=== PATIENT | female | born 1935 | race African-American/Black ===

== ENCOUNTER 2018-04-19 08:56 | Inpatient (IN) | payer BC, MEDICARE ==
[2018-04-19] VITALS (17 sets, daily range): BP systolic 108–160; BP diastolic 37–154
[~2018-04-19] VITALS: Ht 162.6 cm; Wt 90.7 kg
[2018-04-19] MEDS ORDERED: SODIUM CHLORIDE 0.9% 1,000 ML IV ONE ×2 (09:11→10:41)
[2018-04-19 10:00] LABS: HEMOGLOBIN. 10.2 g/dL (12.0-16.0); MEAN CORPUSCULAR HEMOGLOBIN 33.5 pg (28.0-32.0); MEAN CORPUSCULAR VOLUME 108.3 fL (81.0-99.0); MEAN PLATELET VOLUME 10.7 fl (7.4-10.4); RED BLOOD CELL COUNT 3.05 mill/uL (4.2-5.4); RED CELL DISTRIBUTION WIDTH 16.8 % (11.6-14.6)
[2018-04-19 10:05] LABS: CHLORIDE 82 mEq/L (98-107)
[2018-04-19 10:25] LABS: PLATELET ESTIMATE NORMAL
[2018-04-19 10:26] LABS: PLATELET 308 x1000/uL (130-400)
[2018-04-19 10:35] LABS: BETA HYDROXYBUTYRATE 6.5 mMol/L (0.0-0.3)
[2018-04-19] MEDS ORDERED: ONDANSETRON HCL 4MG/2ML INJ IV STA (10:41)
[2018-04-19 10:46] LABS: BG BASE EXCESS -10.8 mmol/L (-2.0-2.0); BG CARBOXYHEMOGLOBIN 0.5 % (0.5-1.5); BG DEOXYHEMOGLOBIN 3.2 % (0.0-5.0); BG FRACTION INSPIRED OXYGEN 28; BG HCO3 ACT 13.1 mmol/L (22.0-26.0); BG METHEMOGLOBIN 0.3 % (0.0-1.5); BG OXYGEN SATURATION 96.8 % (92.0-98.5); BG PCO2 23.3 mmHg (35.0-45.0); BG PH 7.367 (7.350-7.450); BG PO2 103.4 mmHg (75.0-100.0); BG SAMPLE SITE RIGHT BRACHIAL; BG TOTAL HEMOGLOBIN 9.2 g/dL (12.0-18.0); BG VENT MODE NASAL CANNULA
[2018-04-19 11:04] LABS: CLARITY URINE CLOUDY (CLEAR); COLOR URINE DARK YELLOW (YELLOW); KETONES URINE 1+ (NEGATIVE); LEUKOCYTE ESTERASE URINE NEGATIVE (NEGATIVE); NITRITE URINE NEGATIVE (NEGATIVE); OCCULT BLOOD URINE NEGATIVE (NEGATIVE); PROTEIN URINE TRACE (NEGATIVE); SPECIFIC GRAVITY URINE 1.029 (1.005-1.030); UROBILINOGEN URINE 0.2 E.U./dL (0.2-1.0)
[2018-04-19] MEDS ORDERED: POTASSIUM CHLORIDE INJ 40 MEQ in DEXT 5% WATER 250 ML IV ONE ×2 (11:30→14:45)
[2018-04-19] MEDS ORDERED: CEFTRIAXONE 2 G PREMIX 50 ML IV SCH (13:00)
[2018-04-19] MEDS ORDERED: PIPERACILLIN/TAZOBACTAM 3.375GM/50ML PREMIX IV ONE (14:30)
[2018-04-19] MEDS ORDERED: INSULIN REGULAR (DRIP) 100 UNITS in SODIUM CHLORIDE 0.9% 100 ML IV ONE (14:42)
[2018-04-19] MEDS ORDERED: SODIUM CHLORIDE 0.9% 1,000 ML IV NR (14:42)
[2018-04-19] MEDS ORDERED: ACETAMINOPHEN 325MG TABLET PO PRN (14:45)
[2018-04-19] MEDS ORDERED: INSULIN REGULAR (DRIP) 100 UNITS in SODIUM CHLORIDE 0.9% 100 ML IV SCH (15:00)
[2018-04-19 15:42] LABS: HEPATITIS B SURFACE ANTIGEN NEGATIVE
[2018-04-19] MEDS ORDERED: PIPERACILLIN/TAZ 3.375G PREMIX 50 ML IV NR (16:00)
[2018-04-19 16:10] LABS: HEPATITIS B CORE AB IGM NEGATIVE
[2018-04-19 16:12] LABS: HEPATITIS A AB IGM NEGATIVE (NEGATIVE)
[2018-04-19] MEDS ORDERED: POTASSIUM CHLORIDE INJ 40 MEQ in DEXT 5% WATER 250 ML IV NR (16:15)
[2018-04-19] MEDS ORDERED: SODIUM CHLORIDE 0.9% 1,000 ML IV SCH (17:30)
[2018-04-19] MEDS ORDERED: DEXTROSE 50% WATER 50ML SYRINGE IV PRN ×2 (17:30)
[2018-04-19] MEDS: BLOOD SUGAR DIAGNOSTIC STRIP TEST SCH ×7 (17:49→23:59)
[2018-04-19 20:29] LABS: PHOSPHORUS 2.4 mg/dL (2.5-4.9)
[2018-04-19] MEDS: PIPERACILLIN/TAZ 3.375G PREMIX 50 ML IV SCH (20:30)
[2018-04-19] MEDS: INSULIN REGULAR (DRIP) 100 UNITS in SODIUM CHLORIDE 0.9% 100 ML IV SCH (20:31)
[2018-04-19] MEDS ORDERED: KCL 10MEQ/50ML PREMIX 50 ML IV NR (21:00)
[2018-04-20] VITALS (49 sets, daily range): BP systolic 36–176; BP diastolic 21–132
[2018-04-20] MEDS: INSULIN REGULAR (DRIP) 100 UNITS in SODIUM CHLORIDE 0.9% 100 ML IV SCH (00:33)
[2018-04-20] MEDS: BLOOD SUGAR DIAGNOSTIC STRIP TEST SCH ×14 (01:22→21:43)
[2018-04-20] MEDS: PIPERACILLIN/TAZ 3.375G PREMIX 50 ML IV SCH ×3 (04:30→21:41)
[2018-04-20 05:03] LABS: HEMATOCRIT. 28.7 % (36.0-48.0); HEMOGLOBIN. 9.6 g/dL (12.0-16.0); MEAN CORPUSCULAR HEMOGLOBIN 33.9 pg (28.0-32.0); MEAN CORPUSCULAR VOLUME 101.9 fL (81.0-99.0); MEAN PLATELET VOLUME 10.4 fl (7.4-10.4); PLATELET 223 x1000/uL (130-400); RED BLOOD CELL COUNT 2.82 mill/uL (4.2-5.4); RED CELL DISTRIBUTION WIDTH 16.3 % (11.6-14.6)
[2018-04-20 05:11] LABS: CHLORIDE 95 mEq/L (98-107)
[2018-04-20 05:17] LABS: PHOSPHORUS 1.1 mg/dL (2.5-4.9)
[2018-04-20] MEDS ORDERED: DIATR MEGLU/DIATRIZOATE SOLN 30ML PO SCH (07:00)
[2018-04-20] MEDS: DEXT 5%/0.45% NACL 1000ML 1,000 ML IV SCH (07:12)
[2018-04-20 07:48] LABS: NUCLEATED RED BLOOD CELLS 1 /100 WBC
[2018-04-20 07:49] LABS: PLATELET ESTIMATE NORMAL
[2018-04-20] MEDS ORDERED: POTASSIUM PHOS,M-BASIC-D-BASIC 20 MMOL in DEXT 5% WATER 243.3333 ML IV NR (08:00)
[2018-04-20] MEDS ORDERED: MAGNESIUM 2 G PREMIX 50 ML IV NR (08:00)
[2018-04-20] MEDS ORDERED: LIDOCAINE HCL/PF 1% 10 MG/ML 30ML VIAL ONE (10:46)
[2018-04-20] MEDS ORDERED: POTASSIUM CHLORIDE INJ 60 MEQ in DEXT 5% WATER 500 ML IV NR (12:00)
[2018-04-20] MEDS ORDERED: DEXTROSE 50% WATER 50ML SYRINGE IV PRN (14:30)
[2018-04-20] MEDS: INSULIN GLARGINE UD 100 UNITS/ML SYR SUBCUT SCH (16:09)
[2018-04-20] MEDS: INSULIN LISPRO 100 UNITS/ML SUBCUT SCH ×2 (18:27→21:43)
[2018-04-20] MEDS ORDERED: ATEN-42 MT (21:09)
[2018-04-20] MEDS ORDERED: OXYB5TAB MT (21:09)
[2018-04-20] MEDS ORDERED: FELO10TA MT (21:09)
[2018-04-20] MEDS ORDERED: TAP5 MT (21:09)
[2018-04-20] MEDS ORDERED: HYDR12.54 MT (21:09)
[2018-04-20] MEDS ORDERED: LISI-604 MT (21:09)
[2018-04-20] MEDS ORDERED: SIMV20TA6 MT (21:09)
[2018-04-20] MEDS ORDERED: CYCL10TA7 MT (21:09)
[2018-04-21] VITALS (67 sets, daily range): BP systolic 73–154; BP diastolic 31–74
[2018-04-21] MEDS ORDERED: DEXT 5% WATER + KCL 20MEQ/L 1,000 ML IV ONE (00:15)
[2018-04-21] MEDS ORDERED: KCL 20MEQ/100ML PREMIX 100 ML IV SCH (01:00)
[2018-04-21 05:25] LABS: HEMATOCRIT. 28.4 % (36.0-48.0); HEMOGLOBIN. 9.4 g/dL (12.0-16.0); MEAN CORPUSCULAR HEMOGLOBIN 33.9 pg (28.0-32.0); MEAN PLATELET VOLUME 11.2 fl (7.4-10.4); PLATELET 134 x1000/uL (130-400); RED BLOOD CELL COUNT 2.78 mill/uL (4.2-5.4); RED CELL DISTRIBUTION WIDTH 16.3 % (11.6-14.6)
[2018-04-21 05:55] LABS: PHOSPHORUS 2.2 mg/dL (2.5-4.9)
[2018-04-21] MEDS ORDERED: POTASSIUM CHLORIDE 20MEQ/PACKET PO NR (06:30)
[2018-04-21] MEDS: BLOOD SUGAR DIAGNOSTIC STRIP TEST SCH ×4 (06:41→21:10)
[2018-04-21] MEDS: PIPERACILLIN/TAZ 3.375G PREMIX 50 ML IV SCH ×3 (06:41→21:15)
[2018-04-21] MEDS: INSULIN LISPRO 100 UNITS/ML SUBCUT SCH ×3 (06:45→21:15)
[2018-04-21 07:25] LABS: PLATELET ESTIMATE NORMAL
[2018-04-21] MEDS ORDERED: POTASSIUM PHOS,M-BASIC-D-BASIC 20 MMOL in DEXT 5% WATER 243.3333 ML IV NR (08:00)
[2018-04-21] MEDS: DEXT 5%/0.45% NACL 1000ML 1,000 ML IV SCH ×3 (08:50→23:00)
[2018-04-21 10:03] LABS: INR 1.2; PARTIAL THROMBOPLASTIN TIME 30.5 sec (23.4-31.0); PROTHROMBIN TIME 12.5 sec (9.1-11.1)
[2018-04-21] MEDS: INSULIN GLARGINE UD 100 UNITS/ML SYR SUBCUT SCH (11:17)
[2018-04-21 11:57] LABS: AMMONIA < 10 uMol/L (<32)
[2018-04-21] MEDS ORDERED: LIDOCAINE HCL 1% 10 MG/ML 10ML VIAL ONE (12:56)
[2018-04-21] MEDS ORDERED: SODIUM BICARBONATE 4% (2.4MEQ) 5ML VIAL IV ONE (12:56)
[2018-04-21] MEDS ORDERED: IOHEXOL-300 100 ML BOTTLE ONE (12:57)
[2018-04-21] MEDS ORDERED: MIDAZOLAM HCL 2 MG/2 ML VIAL ONE (13:50)
[2018-04-21] MEDS ORDERED: FENTANYL CITRATE/PF 50MCG/ML 2ML VIAL ONE (13:51)
[2018-04-21] MEDS ORDERED: FENTANYL CITRATE/PF 50MCG/ML 2ML VIAL IV ONE (14:30)
[2018-04-21] MEDS ORDERED: MIDAZOLAM HCL 2 MG/2 ML VIAL IV ONE (14:30)
[2018-04-22] VITALS (46 sets, daily range): BP systolic 63–147; BP diastolic 31–88
[2018-04-22 05:30] LABS: HEMATOCRIT. 25.9 % (36.0-48.0); HEMOGLOBIN. 8.7 g/dL (12.0-16.0); MEAN CORPUSCULAR VOLUME 101.5 fL (81.0-99.0); MEAN PLATELET VOLUME 10.8 fl (7.4-10.4); PLATELET 83 x1000/uL (130-400); RED BLOOD CELL COUNT 2.55 mill/uL (4.2-5.4); RED CELL DISTRIBUTION WIDTH 16.8 % (11.6-14.6)
[2018-04-22 05:39] LABS: PHOSPHORUS 2.7 mg/dL (2.5-4.9)
[2018-04-22] MEDS: PIPERACILLIN/TAZ 3.375G PREMIX 50 ML IV SCH ×3 (06:19→21:34)
[2018-04-22] MEDS: BLOOD SUGAR DIAGNOSTIC STRIP TEST SCH ×4 (06:20→21:08)
[2018-04-22] MEDS: INSULIN LISPRO 100 UNITS/ML SUBCUT SCH ×4 (06:20→21:35)
[2018-04-22 07:03] LABS: PLATELET ESTIMATE NORMAL
[2018-04-22] MEDS: INSULIN GLARGINE UD 100 UNITS/ML SYR SUBCUT SCH (11:34)
[2018-04-22] MEDS: DEXT 5%/0.45% NACL 1000ML 1,000 ML IV SCH (15:19)
[2018-04-23] VITALS (39 sets, daily range): BP systolic 78–161; BP diastolic 33–107
[2018-04-23] MEDS: DEXT 5%/0.45% NACL 1000ML 1,000 ML IV SCH (01:40)
[2018-04-23 05:03] LABS: HEMATOCRIT. 27.5 % (36.0-48.0); HEMOGLOBIN. 9.1 g/dL (12.0-16.0); MEAN CORPUSCULAR HEMOGLOBIN 33.4 pg (28.0-32.0); MEAN CORPUSCULAR VOLUME 100.5 fL (81.0-99.0); MEAN PLATELET VOLUME 11.2 fl (7.4-10.4); PLATELET 75 x1000/uL (130-400); RED BLOOD CELL COUNT 2.74 mill/uL (4.2-5.4)
[2018-04-23 05:06] LABS: CHLORIDE 96 mEq/L (98-107)
[2018-04-23] MEDS: BLOOD SUGAR DIAGNOSTIC STRIP TEST SCH ×4 (06:20→21:00)
[2018-04-23] MEDS: INSULIN LISPRO 100 UNITS/ML SUBCUT SCH ×4 (06:48→22:03)
[2018-04-23] MEDS: PIPERACILLIN/TAZ 3.375G PREMIX 50 ML IV SCH ×3 (06:59→23:12)
[2018-04-23] MEDS: POTASSIUM CHLORIDE 20MEQ/PACKET PO NR ×2 (07:30→08:11)
[2018-04-23] MEDS: ONDANSETRON HCL 4MG/2ML INJ IV PRN (08:11)
[2018-04-23] MEDS ORDERED: POTASSIUM CHLORIDE INJ 40 MEQ in DEXT 5% WATER 500 ML IV NR (09:00)
[2018-04-23 09:08] LABS: T4 FREE 0.82 ng/dL (0.76-1.46)
[2018-04-23] MEDS: INSULIN GLARGINE UD 100 UNITS/ML SYR SUBCUT SCH (09:45)
[2018-04-23] MEDS ORDERED: MAGNESIUM 2 G PREMIX 50 ML IV NR (14:00)
[2018-04-23] MEDS ORDERED: MAGNESIUM SULFATE 2 GM in SODIUM CHLORIDE 0.9% 100 ML IV NR (14:00)
[2018-04-23 14:33] LABS: NUCLEATED RED BLOOD CELLS 2 /100 WBC
[2018-04-23 14:34] LABS: PLATELET ESTIMATE DECREASED
[2018-04-23] MEDS: MEGESTROL ACETATE 400 MG/10 ML UDC PO SCH (16:00)
[2018-04-23] MEDS ORDERED: POTASSIUM PHOS,M-BASIC-D-BASIC 15 MMOL in DEXT 5% WATER 245 ML IV NR (17:00)
[2018-04-23 20:43] LABS: D-DIMER 5.75 mg/L FEU (<0.50)
[2018-04-23 20:55] LABS: CREATINE KINASE MB FRACTION 1.3 ng/mL (0.5-3.6)
[2018-04-24] VITALS: BP 132/55
[2018-04-24 00:22] LABS: CREATINE KINASE MB FRACTION 1.2 ng/mL (0.5-3.6)
[2018-04-24] MEDS: DEXT 5%/0.45% NACL KCL 20MEQ/L 1,000 ML IV SCH ×2 (01:59→18:20)
[2018-04-24 04:00] VITALS: BP 121/50
[2018-04-24] MEDS: PIPERACILLIN/TAZ 3.375G PREMIX 50 ML IV SCH ×3 (06:13→23:54)
[2018-04-24 06:31] LABS: HEMATOCRIT 25.3 % (36.0-48.0); HEMOGLOBIN 8.6 g/dL (12.0-16.0); MEAN CORPUSCULAR HEMOGLOBIN 34.2 pg (28.0-32.0); MEAN CORPUSCULAR VOLUME 101.4 fL (81.0-99.0); PLATELET 91 x1000/uL (130-400); RED CELL DISTRIBUTION WIDTH 17.1 % (11.6-14.6)
[2018-04-24 06:32] LABS: CHLORIDE 95 mEq/L (98-107)
[2018-04-24 06:48] LABS: CREATINE KINASE 22 IU/L (26-192)
[2018-04-24 06:51] LABS: CREATINE KINASE MB FRACTION < 1.0 ng/mL (0.5-3.6)
[2018-04-24] MEDS: INSULIN LISPRO 100 UNITS/ML SUBCUT SCH ×4 (07:15→21:15)
[2018-04-24] MEDS: BLOOD SUGAR DIAGNOSTIC STRIP TEST SCH ×4 (07:28→21:13)
[2018-04-24 08:00] VITALS: BP 111/60
[2018-04-24] MEDS: MEGESTROL ACETATE 400 MG/10 ML UDC PO SCH (08:28)
[2018-04-24] MEDS ORDERED: POTASSIUM CHLORIDE 20MEQ/PACKET PO NR (09:45)
[2018-04-24] MEDS: INSULIN GLARGINE UD 100 UNITS/ML SYR SUBCUT SCH (10:14)
[2018-04-24 12:00] VITALS: BP 125/64
[2018-04-24 16:00] VITALS: BP 139/39
[2018-04-24 20:00] VITALS: BP 128/45
[2018-04-25] VITALS (11 sets, daily range): BP systolic 107–181; BP diastolic 30–78
[2018-04-25] MEDS: BLOOD SUGAR DIAGNOSTIC STRIP TEST SCH ×4 (05:49→21:00)
[2018-04-25] MEDS: PIPERACILLIN/TAZ 3.375G PREMIX 50 ML IV SCH ×3 (07:05→23:13)
[2018-04-25 07:11] LABS: CHLORIDE 97 mEq/L (98-107)
[2018-04-25] MEDS: INSULIN LISPRO 100 UNITS/ML SUBCUT SCH ×4 (07:15→23:40)
[2018-04-25 07:31] LABS: PHOSPHORUS 1.9 mg/dL (2.5-4.9)
[2018-04-25 07:42] LABS: HEMATOCRIT. 21.1 % (36.0-48.0); HEMOGLOBIN. 7.2 g/dL (12.0-16.0); MEAN CORPUSCULAR VOLUME 103.4 fL (81.0-99.0); MEAN PLATELET VOLUME 10.6 fl (7.4-10.4); PLATELET 105 x1000/uL (130-400); RED BLOOD CELL COUNT 2.04 mill/uL (4.2-5.4); RED CELL DISTRIBUTION WIDTH 17.6 % (11.6-14.6)
[2018-04-25] MEDS: INSULIN GLARGINE UD 100 UNITS/ML SYR SUBCUT SCH (09:21)
[2018-04-25] MEDS: MEGESTROL ACETATE 400 MG/10 ML UDC PO SCH (09:38)
[2018-04-25] MEDS: PANTOPRAZOLE SODIUM 40 MG/VIAL IV SCH (09:39)
[2018-04-25] MEDS: DEXT 5%/0.45% NACL KCL 20MEQ/L 1,000 ML IV SCH ×2 (09:39→23:18)
[2018-04-25] MEDS ORDERED: MAGNESIUM 2 G PREMIX 50 ML IV ONE (11:00)
[2018-04-25 11:50] LABS: INR 1.1; PARTIAL THROMBOPLASTIN TIME 29.9 sec (23.4-31.0); PROTHROMBIN TIME 11.4 sec (9.1-11.1)
[2018-04-25] MEDS ORDERED: MAGNESIUM SULFATE 2 GM in DEXTROSE 5% WATER 50 ML IV SCH (12:00)
[2018-04-25] MEDS ORDERED: POTASSIUM PHOS,M-BASIC-D-BASIC 15 MMOL in DEXT 5% WATER 245 ML IV SCH (12:00)
[2018-04-25 17:33] LABS: PLATELET ESTIMATE DECREASED
[2018-04-25 19:09] LABS: TOTAL IRON BINDING CAPACITY 91 ug/dL (250-450)
[2018-04-25] MEDS: ONDANSETRON HCL 4MG/2ML INJ IV PRN (23:13)
[2018-04-26] VITALS: BP 132/43
[2018-04-26 04:00] VITALS: BP 153/52
[2018-04-26] MEDS: BLOOD SUGAR DIAGNOSTIC STRIP TEST SCH ×4 (06:45→21:53)
[2018-04-26 06:57] LABS: INR 1.1; PARTIAL THROMBOPLASTIN TIME 27.8 sec (23.4-31.0); PROTHROMBIN TIME 11.1 sec (9.1-11.1)
[2018-04-26] MEDS: PIPERACILLIN/TAZ 3.375G PREMIX 50 ML IV SCH ×3 (07:13→21:53)
[2018-04-26 08:00] VITALS: BP 148/51
[2018-04-26 08:09] LABS: CHLORIDE 95 mEq/L (98-107)
[2018-04-26] MEDS: INSULIN LISPRO 100 UNITS/ML SUBCUT SCH ×4 (08:12→22:15)
[2018-04-26] MEDS: PANTOPRAZOLE SODIUM 40 MG/VIAL IV SCH (08:12)
[2018-04-26] MEDS: MEGESTROL ACETATE 400 MG/10 ML UDC PO SCH (08:13)
[2018-04-26 08:24] LABS: PHOSPHORUS 2.6 mg/dL (2.5-4.9)
[2018-04-26 10:45] LABS: HEMATOCRIT. 26.8 % (36.0-48.0); HEMOGLOBIN. 9.2 g/dL (12.0-16.0); MEAN CORPUSCULAR HEMOGLOBIN 33.7 pg (28.0-32.0); MEAN CORPUSCULAR VOLUME 98.5 fL (81.0-99.0); MEAN PLATELET VOLUME 9.5 fl (7.4-10.4); PLATELET 131 x1000/uL (130-400); RED BLOOD CELL COUNT 2.72 mill/uL (4.2-5.4); RED CELL DISTRIBUTION WIDTH 20.7 % (11.6-14.6)
[2018-04-26 12:00] VITALS: BP 139/59
[2018-04-26] MEDS ORDERED: IOHEXOL-300 100 ML BOTTLE ONE (12:59)
[2018-04-26] MEDS ORDERED: SIMETHICONE 40 MG/0.6 ML 30ML ONE (12:59)
[2018-04-26 14:50] LABS: PLATELET ESTIMATE NORMAL
[2018-04-26] MEDS ORDERED: FENTANYL CITRATE/PF 50MCG/ML 2ML VIAL ONE (15:42)
[2018-04-26] MEDS ORDERED: PROPOFOL 200MG/20ML VIAL IV ONE (15:42)
[2018-04-26] MEDS ORDERED: ROCURONIUM BROMIDE 10MG/ML VIAL 5ML IV ONE (15:51)
[2018-04-26] MEDS ORDERED: NEOSTIGMINE METHYLSULFATE 1MG/ML 10 ML VIAL ONE (16:55)
[2018-04-26] MEDS ORDERED: GLYCOPYRROLATE 0.2 MG/ML 2ML VIAL ONE (16:55)
[2018-04-26] MEDS ORDERED: ONDANSETRON HCL 4MG/2ML INJ IV PRN (17:15)
[2018-04-26 18:30] VITALS: BP 156/71
[2018-04-26 20:00] VITALS: BP 145/63
[2018-04-26] MEDS: DEXT 5%/0.45% NACL KCL 20MEQ/L 1,000 ML IV SCH (21:53)
[2018-04-27] VITALS: BP_SYST 113; BP_SYST 123; BP_DIAS 54; BP_DIAS 61
[2018-04-27 04:00] VITALS: BP 113/54
[2018-04-27] MEDS: BLOOD SUGAR DIAGNOSTIC STRIP TEST SCH ×4 (06:26→22:20)
[2018-04-27] MEDS: INSULIN LISPRO 100 UNITS/ML SUBCUT SCH ×4 (06:26→22:31)
[2018-04-27 08:00] VITALS: BP 110/47
[2018-04-27] MEDS: MEGESTROL ACETATE 400 MG/10 ML UDC PO SCH (09:48)
[2018-04-27] MEDS: PANTOPRAZOLE SODIUM 40 MG/VIAL IV SCH (09:49)
[2018-04-27 12:00] VITALS: BP 130/48
[2018-04-27 12:16] LABS: HEMATOCRIT. 25.1 % (36.0-48.0); HEMOGLOBIN. 8.6 g/dL (12.0-16.0); MEAN CORPUSCULAR HEMOGLOBIN 34.1 pg (28.0-32.0); MEAN CORPUSCULAR VOLUME 99.3 fL (81.0-99.0); MEAN PLATELET VOLUME 9.9 fl (7.4-10.4); PLATELET 168 x1000/uL (130-400); RED BLOOD CELL COUNT 2.52 mill/uL (4.2-5.4); RED CELL DISTRIBUTION WIDTH 20.7 % (11.6-14.6)
[2018-04-27 12:34] LABS: CHLORIDE 96 mEq/L (98-107)
[2018-04-27 13:05] LABS: NUCLEATED RED BLOOD CELLS 1 /100 WBC; PLATELET ESTIMATE NORMAL
[2018-04-27] MEDS: DEXT 5%/0.45% NACL KCL 20MEQ/L 1,000 ML IV SCH (13:37)
[2018-04-27] MEDS ORDERED: PIPERACILLIN/TAZ 3.375G PREMIX 50 ML IV SCH (13:45)
[2018-04-27 16:00] VITALS: BP 118/40
[2018-04-27] MEDS: PIPERACILLIN/TAZ 3.375G PREMIX 50 ML IV SCH ×2 (16:08→22:28)
[2018-04-27 20:00] VITALS: BP 124/51
[2018-04-28] VITALS: BP 122/48
[2018-04-28] MEDS: DEXT 5%/0.45% NACL KCL 20MEQ/L 1,000 ML IV SCH ×2 (02:17→22:09)
[2018-04-28 04:00] VITALS: BP 119/43
[2018-04-28] MEDS: PIPERACILLIN/TAZ 3.375G PREMIX 50 ML IV SCH ×3 (05:04→22:05)
[2018-04-28] MEDS: BLOOD SUGAR DIAGNOSTIC STRIP TEST SCH ×4 (06:11→22:00)
[2018-04-28] MEDS: INSULIN LISPRO 100 UNITS/ML SUBCUT SCH ×4 (06:23→22:06)
[2018-04-28 07:14] LABS: HEMATOCRIT. 24.4 % (36.0-48.0); HEMOGLOBIN. 8.2 g/dL (12.0-16.0); MEAN CORPUSCULAR HEMOGLOBIN 34.1 pg (28.0-32.0); MEAN CORPUSCULAR VOLUME 101.1 fL (81.0-99.0); MEAN PLATELET VOLUME 9.7 fl (7.4-10.4); PLATELET 189 x1000/uL (130-400); RED BLOOD CELL COUNT 2.41 mill/uL (4.2-5.4); RED CELL DISTRIBUTION WIDTH 21.4 % (11.6-14.6)
[2018-04-28 08:00] VITALS: BP 122/46
[2018-04-28 09:21] LABS: CHLORIDE 94 mEq/L (98-107)
[2018-04-28] MEDS: PANTOPRAZOLE SODIUM 40 MG/VIAL IV SCH (10:04)
[2018-04-28] MEDS: MEGESTROL ACETATE 400 MG/10 ML UDC PO SCH (10:04)
[2018-04-28 12:00] VITALS: BP 132/36
[2018-04-28 14:17] LABS: HEPATITIS B SURFACE ANTIGEN NEGATIVE
[2018-04-28 16:00] VITALS: BP 110/48
[2018-04-28 20:00] VITALS: BP 152/53
[2018-04-28] MEDS ORDERED: BISACODYL 10MG SUPP PR PRN (20:15)
[2018-04-29] VITALS: BP 129/53
[2018-04-29 04:00] VITALS: BP 118/54
[2018-04-29] MEDS: PIPERACILLIN/TAZ 3.375G PREMIX 50 ML IV SCH ×3 (06:18→22:10)
[2018-04-29] MEDS: BLOOD SUGAR DIAGNOSTIC STRIP TEST SCH ×4 (06:18→21:00)
[2018-04-29] MEDS: INSULIN LISPRO 100 UNITS/ML SUBCUT SCH ×4 (06:19→22:10)
[2018-04-29 08:00] VITALS: BP 157/67
[2018-04-29 08:56] LABS: PLATELET ESTIMATE NORMAL
[2018-04-29] MEDS: MEGESTROL ACETATE 400 MG/10 ML UDC PO SCH (09:06)
[2018-04-29] MEDS: PANTOPRAZOLE SODIUM 40 MG/VIAL IV SCH (09:06)
[2018-04-29 12:00] VITALS: BP 157/66
[2018-04-29 16:00] VITALS: BP 156/64
[2018-04-29 20:00] VITALS: BP 125/48
[2018-04-30] VITALS: BP 146/68
[2018-04-30 04:00] VITALS: BP 137/41
[2018-04-30] MEDS: PIPERACILLIN/TAZ 3.375G PREMIX 50 ML IV SCH ×3 (05:52→21:07)
[2018-04-30] MEDS: BLOOD SUGAR DIAGNOSTIC STRIP TEST SCH ×4 (05:59→21:07)
[2018-04-30] MEDS: INSULIN LISPRO 100 UNITS/ML SUBCUT SCH ×4 (06:02→21:11)
[2018-04-30 06:07] LABS: HEMATOCRIT. 25.7 % (36.0-48.0); HEMOGLOBIN. 8.6 g/dL (12.0-16.0); MEAN CORPUSCULAR HEMOGLOBIN 34.7 pg (28.0-32.0); MEAN CORPUSCULAR VOLUME 103.1 fL (81.0-99.0); MEAN PLATELET VOLUME 9.3 fl (7.4-10.4); PLATELET 235 x1000/uL (130-400); RED BLOOD CELL COUNT 2.49 mill/uL (4.2-5.4); RED CELL DISTRIBUTION WIDTH 21.2 % (11.6-14.6)
[2018-04-30 06:38] LABS: CHLORIDE 98 mEq/L (98-107)
[2018-04-30 08:00] VITALS: BP 146/60
[2018-04-30] MEDS: PANTOPRAZOLE SODIUM 40 MG/VIAL IV SCH (09:38)
[2018-04-30] MEDS: MEGESTROL ACETATE 400 MG/10 ML UDC PO SCH (09:38)
[2018-04-30 10:17] LABS: PLATELET ESTIMATE NORMAL
[2018-04-30 12:00] VITALS: BP_SYST 136; BP_SYST 141; BP_DIAS 48; BP_DIAS 91
[2018-04-30 16:00] VITALS: BP 126/49
[2018-04-30 20:00] VITALS: BP 130/54
[2018-05-01] VITALS: BP 135/56
[2018-05-01 04:00] VITALS: BP 153/52
[2018-05-01] MEDS: BLOOD SUGAR DIAGNOSTIC STRIP TEST SCH ×4 (05:40→20:50)
[2018-05-01] MEDS: PIPERACILLIN/TAZ 3.375G PREMIX 50 ML IV SCH ×3 (06:03→21:42)
[2018-05-01] MEDS: INSULIN LISPRO 100 UNITS/ML SUBCUT SCH ×4 (06:06→20:50)
[2018-05-01 08:35] VITALS: BP 125/52
[2018-05-01 09:07] LABS: BASOPHILS % 0.8 % (0.0-2.0); EOSINOPHILS % 0.6 % (0.0-5.0); HEMATOCRIT. 25.6 % (36.0-48.0); HEMOGLOBIN. 8.5 g/dL (12.0-16.0); LYMPHOCYTES % 7.1 % (20.0-50.0); MEAN CORPUSCULAR HEMOGLOBIN 34.7 pg (28.0-32.0); MEAN CORPUSCULAR VOLUME 104.2 fL (81.0-99.0); MONOCYTES % 3.3 % (2.0-8.0); NEUTROPHILS % 88.2 % (40.0-76.0); PLATELET 247 x1000/uL (130-400); RED BLOOD CELL COUNT 2.45 mill/uL (4.2-5.4); RED CELL DISTRIBUTION WIDTH 21.6 % (11.6-14.6)
[2018-05-01] MEDS: PANTOPRAZOLE SODIUM 40 MG/VIAL IV SCH (09:16)
[2018-05-01] MEDS: MEGESTROL ACETATE 400 MG/10 ML UDC PO SCH (09:16)
[2018-05-01 09:28] LABS: CHLORIDE 99 mEq/L (98-107)
[2018-05-01 09:36] LABS: PHOSPHORUS 2.4 mg/dL (2.5-4.9)
[2018-05-01] MEDS ORDERED: MAGNESIUM 1 G PREMIX 100 ML IV NR (11:30)
[2018-05-01 12:00] VITALS: BP 103/40
[2018-05-01 16:00] VITALS: BP 122/45
[2018-05-01 20:00] VITALS: BP 124/47
[2018-05-02] VITALS: BP 141/47
[2018-05-02 04:00] VITALS: BP 130/51
[2018-05-02 06:11] LABS: HEMATOCRIT 24.4 % (36.0-48.0); HEMOGLOBIN 8.2 g/dL (12.0-16.0); MEAN CORPUSCULAR HEMOGLOBIN 34.9 pg (28.0-32.0); MEAN CORPUSCULAR VOLUME 103.7 fL (81.0-99.0); PLATELET 274 x1000/uL (130-400); RED BLOOD CELL COUNT 2.35 mill/uL (4.2-5.4); RED CELL DISTRIBUTION WIDTH 21.6 % (11.6-14.6)
[2018-05-02 06:21] LABS: CHLORIDE 99 mEq/L (98-107)
[2018-05-02] MEDS: BLOOD SUGAR DIAGNOSTIC STRIP TEST SCH ×2 (06:27→12:15)
[2018-05-02] MEDS: PIPERACILLIN/TAZ 3.375G PREMIX 50 ML IV SCH (06:27)
[2018-05-02] MEDS: INSULIN LISPRO 100 UNITS/ML SUBCUT SCH ×2 (06:35→12:18)
[2018-05-02 08:00] VITALS: BP 124/76
[2018-05-02] MEDS: PANTOPRAZOLE SODIUM 40 MG/VIAL IV SCH (09:08)
[2018-05-02] MEDS: MEGESTROL ACETATE 400 MG/10 ML UDC PO SCH (09:08)
[2018-05-02 12:55] VITALS: BP 139/51
[2018-05-02 13:00] VITALS: BP 139/51
== END 2018-05-02 15:50 | DRG 435 ==
LOC: ER 08:56 → EDBEDREQ 12:53 → EDBEDREQTM 12:53 → ENRESERV 14:29 → CANRESERV 14:29 → SUPCPDRO 14:35 → MICUSO 14:41 → EDBEDREQSVC 14:43 → EDBEDREQ 14:44 → ENRESERV 14:55 → 5WST 04-23 21:01
PROVIDERS: ADMIT Internal Medicine; ATTEND Internal Medicine
PROC: B54NZZA Ultrasonography of Left Upper Extremity Veins, Guidance (ICD-10-PCS; 2018-04-20)
PROC: 05HY33Z Insertion of Infusion Device into Upper Vein, Percutaneous Approach (ICD-10-PCS; 2018-04-20)
PROC: 0F9930Z Drainage of Common Bile Duct with Drainage Device, Percutaneous Approach (ICD-10-PCS; principal; 2018-04-21)
PROC: BF141ZZ Fluoroscopy of Gallbladder, Bile Ducts and Pancreatic Ducts using Low Osmolar Contrast (ICD-10-PCS; 2018-04-21)
PROC: 0FBG3ZX Excision of Pancreas, Percutaneous Approach, Diagnostic (ICD-10-PCS; 2018-04-21)
PROC: 02H633Z Insertion of Infusion Device into Right Atrium, Percutaneous Approach (ICD-10-PCS; 2018-04-21)
PROC: B2141ZZ Fluoroscopy of Right Heart using Low Osmolar Contrast (ICD-10-PCS; 2018-04-21)
PROC: 30243N1 Transfusion of Nonautologous Red Blood Cells into Central Vein, Percutaneous Approach (ICD-10-PCS; 2018-04-25)
PROC: 0F798DZ Dilation of Common Bile Duct with Intraluminal Device, Via Natural or Artificial Opening Endoscopic (ICD-10-PCS; 2018-04-26)
PROC: 0FPB80Z Removal of Drainage Device from Hepatobiliary Duct, Via Natural or Artificial Opening Endoscopic (ICD-10-PCS; 2018-04-26)
PROC: 0DJ08ZZ Inspection of Upper Intestinal Tract, Via Natural or Artificial Opening Endoscopic (ICD-10-PCS; 2018-04-26)
DX: C25.0 Malignant neoplasm of head of pancreas (principal); E11.10 Type 2 diabetes mellitus with ketoacidosis without coma; E43 Unspecified severe protein-calorie malnutrition; K83.1 Obstruction of bile duct; G93.40 Encephalopathy, unspecified; N17.9 Acute kidney failure, unspecified; D68.59 Other primary thrombophilia; E87.1 Hypo-osmolality and hyponatremia; R65.10 Systemic inflammatory response syndrome (SIRS) of non-infectious origin without acute organ dysfunction; E87.6 Hypokalemia; E83.42 Hypomagnesemia; E86.9 Volume depletion, unspecified; E83.39 Other disorders of phosphorus metabolism; D69.6 Thrombocytopenia, unspecified; E66.9 Obesity, unspecified; E78.5 Hyperlipidemia, unspecified; I10 Essential (primary) hypertension; K20.9 Esophagitis, unspecified; K29.60 Other gastritis without bleeding; K44.9 Diaphragmatic hernia without obstruction or gangrene; I49.3 Ventricular premature depolarization; K75.9 Inflammatory liver disease, unspecified; R13.10 Dysphagia, unspecified; R62.7 Adult failure to thrive; Z91.19 Patient's noncompliance with other medical treatment and regimen; I95.9 Hypotension, unspecified; Z68.34 Body mass index [BMI] 34.0-34.9, adult; Z88.2 Allergy status to sulfonamides; K75.3 Granulomatous hepatitis, not elsewhere classified; D53.9 Nutritional anemia, unspecified; Z79.899 Other long term (current) drug therapy
CPT/HCPCS: 36415; 36569; 36600; 47534; 70450; 70551; 71045; 74176; 74181; 74330; 76700; 76937; 77001; 77002; 80048; 80053; 80061; 80076; 81003; 82010; 82105; 82140; 82248; 82270; 82375; 82378; 82550; 82553; 82607; 82728; 82746; 82805; 82962; 83036; 83540; 83550; 83690; 83735; 83880; 83930; 84100; 84132; 84439; 84443; 84484; 85025; 85027; 85362; 85379; 85384; 85610; 85730; 86022; 86301; 86304; 86705; 86709; 86803; 86850; 86900; 86920; 87040; 87340; 88305; 92610; 93005; 93306; 93970; 96361; 96365; 96366; 96367; 96375; 97110; 97162; 97530; 99291; C1725; C1726; C1729; C1766; C1769; C2625; C9113; J0696; J1815; J2250; J2405; J2543; J2704; J2710; J3010; J3475; J3480; J3490; J7030; J7040; J7050; J7060; P9016; Q9963; Q9967; A4315